=== PATIENT | male | born 1950 | race Caucasian/White ===

== ENCOUNTER 2016-08-20 15:13 | Emergency (ER) | payer OTHER ==
[2016-08-20 15:21] VITALS: RESP 16; TEMP 98.6
--- NOTE | 2016-08-20 16:47 | EDPHY ---
H & P Stated Complaint: R ARM LAC Source: Patient, Family Exam Limitations: No limitations - Personal History Current Tetanus/Diphtheria Vaccine: No - Medical/Surgical History Hx Asthma: No Hx Chronic Respiratory Disease: No Hx Diabetes: No Hx Cardiac Disease: Yes Hx Renal Disease: No Hx Cirrhosis: No Hx Alcoholism: No Hx HIV/AIDS: No Hx Splenectomy or Spleen Trauma: No Other PMH: "HEART ISSUES" - Social History Smoking Status: Former smoker HPI/ROS: CHIEF COMPLAINT: Forearm laceration HISTORY OF PRESENT ILLNESS: Patient was walking outside yesterday when he tripped and fell, landing on a tree stump. He sustained a laceration to the volar aspect of the right forearm, mid shaft. He irrigated the wound at home and covered it. He did not choose to present until today. He has minimal pain in the area. No numbness or tingling. No weakness. No pulsatile blood flow. No injury elsewhere. Tetanus status is uncertain No injury elsewhere. No other associated complaints or modifying factors. TIME OF INJURY: 23 hours prior to presentation TETANUS STATUS: Uncertain REVIEW OF SYSTEMS: Ten systems reviewed and are negative unless otherwise noted in the HPI EXAMINATION General Appearance: Alert, no distress Head: normocephalic, atraumatic Cardiovascular: Pulses normal throughout. Symmetric radial pulses 2+. Brisk cap refill Neurological: A&O, sensory symmetric, strength symmetric Skin: Warm and dry, no rash. There is a 3.5 cm total length laceration that is stellate on the right forearm. There is retraction of the proximal wound border. Mild surrounding erythema. No purulence. No foreign body. Neurovascular intact distally Extremities: Mild tenderness over the area of laceration. Range of motion is fully intact in the wrist, fingers and elbow. No evidence of tendinous injury from the laceration. Neurovascular intact distally. DIFFERENTIAL DIAGNOSES: Including but not limited to complex laceration, laceration with delayed healing , laceration with delayed presentation, foreign body, MDM: 3:30 p.m. Laceration to the right forearm with delayed presentation. He does have some surrounding erythema. There is no purulence. There is no motor or sensory deficit. Proceed with irrigation and antibiotic treatment. 4:45 p.m. Laceration to the right forearm that occurred yesterday. Tetanus status is uncertain thus we will update him here. Due to the delayed presentation, have anesthetize the wound was copiously irrigated. Discharged home on antibiotics. Return here in 72 hours for delayed closure. He is comfortable with this plan. He is instructed to return to the ER should he have any worsening symptoms, increasing redness, any purulence, any motor or sensory changes. PROCEDURE: Laceration repair, loose closure Consent: Verbal Location: Right forearm, volar Length of repair: 4 cm partial closure Complexity: Simple Layer involvement: Single Anesthesia: Irrigation: Extensive Debridement: None Procedure description: Following good anesthesia, the wound was copiously irrigated. Wound bed was explored and there is no foreign body noted. Wound was loosely approximated with 1 simple interrupted suture due to delayed presentation Suture/Staple material: 4-0 Prolene, 1 simple interrupted suture Wound care: Routine as discussed Suture/Staple removal: 7-10 Days SUTURE STAPLE REMOVAL: 7-10 days ED Precautions: Worsening pain. Erythema, edema, cyanosis, pallor, paresthesia or anesthesia. SUPERVISION: Case discussed with Dr. Zamudio ([facility]) Constitutional: Initial Vital Signs Temperature (C) 37.0 C 08/20/16 15:19 Heart Rate 47 L 08/20/16 15:19 Respiratory Rate 16 08/20/16 15:19 Blood Pressure 142/80 H 08/20/16 15:19 O2 Sat (%) 92 08/20/16 15:19 O2 Delivery Mode Room Air Allergies/Adverse Reactions: ceftriaxone sodium [From Rocephin] Allergy (Severe, Verified 10/07/14 17:51) Swelling/neck,face,throat Home Medications: Medication Instructions Recorded Tamsulosin HCl [Flomax 0.4 MG (*)] 0.8 mg PO DAILY8 07/24/12 Carvedilol [Coreg] 12.5 mg PO BID 10/14/14 Lisinopril [Zestril 2.5 mg (*)] 2.5 mg PO DAILY 10/14/14 Temazepam [Restoril 15 MG (*)] 15 - 30 mg PO HS PRN #30 cap 10/16/14 oxyCODONE CR [Oxycontin] 10 mg PO Q12 #60 tab 10/16/14 oxyCODONE IR [Oxycodone Ir (*)] 5 mg PO Q3 PRN #90 tab 10/16/14 Amoxicillin/Clavulanate Pot 875 mg PO BID #20 tab 08/20/16 [Augmentin 875 MG TAB (*)] Medical Decision Making ED Course/Re-evaluation: This patient was evaluated and managed by the PA. I have reviewed the chart and agree with the plan of care. I am the secondary supervising physician. (Ryann Zamudio) - Data Points Medications Given: Discontinued Medications Diphtheria/Tetanus/Acell Pertussis (Boostrix) 0.5 ml IM .ONCE ONE Stop: 08/20/16 16:57 Last Admin: 08/20/16 17:04 Dose: 0.5 ml Departure - Departure Disposition: Home, Routine, Self-Care Clinical Impression: Laceration of forearm, complicated Condition: Good Instructions: Laceration (ED), Laceration Without Closure (ED) Additional Instructions: 1. Medication as prescribed 2. Return in 72 hours for evaluation for the possibility of delayed closure 3. Return sooner for signs of infection as discussed Referrals: Jose Luis Mejia MD [Primary Care Provider] - As per Instructions Physician,Emergency DeptMD [Medical Doctor] - 2-3 days without fail Prescriptions: Amoxicillin/Clavulanate Pot [Augmentin 875 MG TAB (*)] 875 mg PO BID #20 tab
[2016-08-20] MEDS ORDERED: TDAP ADULT 0.5 ML INJ (BOOSTRIX) IM ONE (16:56)
[2016-08-20 17:06] VITALS: BP 119/75; PULSE 81; O2SAT 91
== END 2016-08-20 17:06 | disposition home or self-care (01) ==
PROC: 0HQDXZZ Repair Right Lower Arm Skin, External Approach (ICD-10-PCS; principal; 2016-08-20)
DX: S51.811A Laceration without foreign body of right forearm, initial encounter (principal); Z23 Encounter for immunization; Z87.891 Personal history of nicotine dependence; W01.0XXA Fall on same level from slipping, tripping and stumbling without subsequent striking against object, initial encounter; Y92.009 Unspecified place in unspecified non-institutional (private) residence as the place of occurrence of the external cause
CPT/HCPCS: 12002; 90715; 99283; G0010

== ENCOUNTER 2016-08-23 10:25 | Emergency (ER) | payer OTHER ==
[2016-08-23 10:29] VITALS: BP 112/77; PULSE 50; RESP 16; TEMP 97.3; O2SAT 95
--- NOTE | 2016-08-23 11:22 | EDPHY ---
H & P Time Seen by Provider: 08/23/16 11:21 HPI/ROS: Chief complaint. Wound recheck HPI. 65-year-old male here for possible delayed primary closure. He fell on a stump and waited 24 hours to come to the emergency department. It was cleaned and partially closed with sutures. He started on antibiotics. Patient has no complaints and feels that the wound is healing ROS Constitutional. no fever/chills, no weakness Eyes. no problems with vision ENT. no sore throat, no nasal drainage Cardiovascular. no chest pain Respiratory. no shortness of breath, no cough Abdominal. no abdominal pain, no nausea/vomiting, no diarrhea . no problems urinating MS. no calf pain/swelling, no neck/back pain, no joint pain Skin. Healing laceration to right forearm Lymph. no swollen glands Neuro. no headache, no dizziness, no difficulty walking or with speech Past Medical/Surgical History: Healthy Social History: nonsmoker no alcohol Smoking Status: Former smoker Physical Exam: General Appearance: Alert well-developed male no distress vital signs stable Eyes: Pupils equal and round no pallor or injection. ENT, Mouth: Mucous membranes are moist. Respiratory: There are no retractions, lungs are clear to auscultation. Cardiovascular: Regular rate and rhythm. Gastrointestinal: Abdomen is soft and nontender, no masses, bowel sounds normal. Neurological: Awake and alert, sensory and motor exams grossly normal. Skin: The laceration on the flexor side of the right forearm shows good approximation. No evidence for infection. It appears to be healing well. Distal motor vascular sensitivity is intact Musculoskeletal: Neck is supple nontender. Extremities symmetrical, full range of motion. Psychiatric: Patient is oriented X 3, there is no agitation. Constitutional: Initial Vital Signs Temperature (C) 36.3 C 08/23/16 10:28 Heart Rate 50 L 08/23/16 10:28 Respiratory Rate 16 08/23/16 10:28 Blood Pressure 112/77 08/23/16 10:28 O2 Sat (%) 95 08/23/16 10:28 O2 Delivery Mode Room Air Allergies/Adverse Reactions: ceftriaxone sodium [From Rocephin] Allergy (Severe, Verified 10/07/14 17:51) Swelling/neck,face,throat Home Medications: Medication Instructions Recorded Tamsulosin HCl [Flomax 0.4 MG (*)] 0.8 mg PO DAILY8 07/24/12 Carvedilol [Coreg] 12.5 mg PO BID 10/14/14 Lisinopril [Zestril 2.5 mg (*)] 2.5 mg PO DAILY 10/14/14 Temazepam [Restoril 15 MG (*)] 15 - 30 mg PO HS PRN #30 cap 10/16/14 oxyCODONE CR [Oxycontin] 10 mg PO Q12 #60 tab 10/16/14 oxyCODONE IR [Oxycodone Ir (*)] 5 mg PO Q3 PRN #90 tab 10/16/14 Amoxicillin/Clavulanate Pot 875 mg PO BID #20 tab 08/20/16 [Augmentin 875 MG TAB (*)] Medical Decision Making ED Course/Re-evaluation: Patient and I discussed treatment plan. He is comfortable without receiving further sutures. We discussed criteria for return importance of follow-up and further evaluation. He expresses understanding and agreement Differential Diagnosis: I considered cellulitis, retained foreign body, infection potential of wound. Departure - Departure Disposition: Home, Routine, Self-Care Clinical Impression: Laceration Condition: Good Instructions: Care For Your Stitches (ED) Additional Instructions: Return for signs of infection. Stitches out in total of 10 days. Referrals: Jose Luis Mejia MD [Primary Care Provider] - As per Instructions
== END 2016-08-23 11:27 | disposition home or self-care (01) ==
DX: Z48.01 Encounter for change or removal of surgical wound dressing (principal); Z87.891 Personal history of nicotine dependence
CPT/HCPCS: G0463

== ENCOUNTER → 2016-10-18 | Outpatient (CLI) | payer OTHER | LOC: FIMAGING 08:02 | PROVIDERS: ATTEND Neurological Surgery | DX: Z09 Encounter for follow-up examination after completed treatment for conditions other than malignant neoplasm (principal); Z98.1 Arthrodesis status ==

== ENCOUNTER → 2018-03-26 | Outpatient (CLI) | payer OTHER | LOC: FIMAGING 10:49 → EDSTATUS 10:51 | PROVIDERS: ATTEND Orthopaedic Surgery Sports Medicine | DX: Z13.0 Encounter for screening for diseases of the blood and blood-forming organs and certain disorders involving the immune mechanism (principal) ==